=== PATIENT | female | born 1980 | race Caucasian/White ===

== ENCOUNTER 2022-10-11 09:49 | Outpatient (CLI) | payer BC, SELFPAY | END 2022-10-11 09:50 | disposition home or self-care (01) | LOC: FRMREF 10-12 16:23 | PROVIDERS: PCP Physician Assistant Medical; Visit Provider Family Medicine | DX: N39.0 Urinary tract infection, site not specified (principal) | CPT/HCPCS: 87086; 87186 ==

== ENCOUNTER 2023-03-12 12:59 | Outpatient (CLI) | payer BC, SELFPAY ==
--- NOTE | 2023-03-12 13:20 | CRLHL7_ITS ---
For Patients: As a result of the Century Cures Act, medical imaging exams and procedure reports are released immediately into your electronic medical record. You may view this report before your referring provider. If you have questions, please contact your health care provider. BILATERAL SCREENING MAMMOGRAM WITH COMPUTER-AIDED DETECTION AND TOMOSYNTHESIS TECHNIQUE: CC, MLO and Implant displaced views were obtained. These mammographic images have been obtained using full-field digital technique. These mammographic images were interpreted with the benefit of computer-aided detection. Breast Tomosynthesis was used in this interpretation. COMPARISON FILM: 01/16/22, 07/22/20. FINDINGS: There are scattered areas of fibroglandular density IMPRESSION: There is no radiographic evidence for malignancy. ASSESSMENT: BI-RADS Category 2: Benign RECOMMENDATION: Routine screening mammogram in 1 year. A lay language report of this examination will be provided to the patient. Camilo Canas M.D. Diagnostic Radiologist [email or web address] / be/Dictated by: Camilo Canas MD @ 03/13/2023 8:50:00 AM (Electronically Signed)
== END 2023-03-12 13:00 | disposition home or self-care (01) ==
LOC: MAMMO 13:00
PROVIDERS: PCP Physician Assistant Medical; Visit Provider Obstetrics & Gynecology
DX: Z12.31 Encounter for screening mammogram for malignant neoplasm of breast (principal)
CPT/HCPCS: 77063; 77067

== ENCOUNTER 2024-04-14 12:51 | Outpatient (CLI) | payer BC, SELFPAY ==
--- NOTE | 2024-04-14 13:00 | CRLHL7_ITS ---
For Patients: As a result of the Century Cures Act, medical imaging exams and procedure reports are released immediately into your electronic medical record. You may view this report before your referring provider. If you have questions, please contact your health care provider. BILATERAL SCREENING MAMMOGRAM WITH COMPUTER-AIDED DETECTION AND TOMOSYNTHESIS TECHNIQUE: CC, MLO and Implant displaced views were obtained. These mammographic images have been obtained using full-field digital technique. These mammographic images were interpreted with the benefit of computer-aided detection. Breast Tomosynthesis was used in this interpretation. COMPARISON FILM: 03/12/23, 01/16/22, 07/22/20. FINDINGS: The breasts are heterogeneously dense, which may obscure small masses. IMPRESSION: There is no radiographic evidence for malignancy. ASSESSMENT: BI-RADS Category 2: Benign RECOMMENDATION: Routine screening mammogram in 1 year. A lay language report of this examination will be provided to the patient. Camilo Canas M.D. Diagnostic Radiologist [email or web address] SP/Dictated by: Camilo Canas MD @ 04/15/2024 10:54:00 AM (Electronically Signed)
== END 2024-04-14 12:52 | disposition home or self-care (01) ==
LOC: MAMMO 12:51
PROVIDERS: PCP Physician Assistant Medical; Visit Provider Obstetrics & Gynecology
DX: Z12.31 Encounter for screening mammogram for malignant neoplasm of breast (principal)
CPT/HCPCS: 77063; 77067; 84443

== ENCOUNTER 2024-04-14 13:55 | Outpatient (CLI) | payer BC, SELFPAY | END 2024-04-14 13:56 | disposition home or self-care (01) | LOC: NFLDREF 13:55 | PROVIDERS: PCP Physician Assistant Medical; Visit Provider Obstetrics & Gynecology | DX: Z01.419 Encounter for gynecological examination (general) (routine) without abnormal findings (principal); E04.9 Nontoxic goiter, unspecified; Z12.31 Encounter for screening mammogram for malignant neoplasm of breast; R92.2 Inconclusive mammogram | CPT/HCPCS: 77063; 77067; 84443 ==

== ENCOUNTER 2024-04-28 12:48 | Outpatient (CLI) | payer BC, SELFPAY ==
--- NOTE | 2024-04-28 13:00 | CRLHL7_ITS ---
For Patients: As a result of the Century Cures Act, medical imaging exams and procedure reports are released immediately into your electronic medical record. You may view this report before your referring provider. If you have questions, please contact your health care provider. INDICATION: Thyroid enlargement, nontoxic goiter COMPARISON: none TECHNIQUE: Dias scale and color Doppler images were acquired of the thyroid gland. FINDINGS: Thyroid echotexture is diffusely heterogeneous. Multiple solid and cystic nodules are present within the left thyroid lobe measuring up to 2 cm, TR 3. Multiple solid and cystic nodules within the right thyroid lobe also present measuring up to 1.9 cm, TR 3. The right lobe measures 6.2 x 2.2 x 2.1 cm and the left lobe measures 6.5 x 2.6 x 2.7 cm in size. The color Doppler images demonstrate normal vascularity. There is no evidence of cervical lymphadenopathy or parathyroid mass. IMPRESSION: Enlarged thyroid with heterogeneous echotexture and multiple TR 3 nodules measuring 2.0 cm or less. One year follow-up recommended. Dictated by Camilo Canas MD @ 04/28/2024 2:52:35 PM (Electronically Signed)
== END 2024-04-28 12:49 | disposition home or self-care (01) ==
PROVIDERS: Visit Provider Obstetrics & Gynecology
DX: E04.9 Nontoxic goiter, unspecified (principal)
CPT/HCPCS: 76536

== ENCOUNTER 2025-01-20 09:23 | Outpatient (CLI) | payer OTHER, SELFPAY | END 2025-01-20 09:24 | disposition home or self-care (01) | LOC: NFLDREF 01-26 17:59 | PROVIDERS: Visit Provider Physician Assistant Medical | DX: R82.90 Unspecified abnormal findings in urine (principal) | CPT/HCPCS: 87086 ==

== ENCOUNTER 2025-05-25 12:39 | Outpatient (CLI) | payer OTHER, SELFPAY ==
--- NOTE | 2025-05-25 13:00 | CRLHL7_ITS ---
For Patients: As a result of the Century Cures Act, medical imaging exams and procedure reports are released immediately into your electronic medical record. You may view this report before your referring provider. If you have questions, please contact your health care provider. INDICATION: BILATERAL SCREENING MAMMOGRAM W/IMPLANTS, ASYMPTOMATIC 44 Y/O FEMALE COMPARISON: 04/14/2024, 03/12/2023, 01/16/2022 TECHNIQUE: Digital mammogram in CC and MLO projections including computer-aided detection (CAD) and tomosynthesis. BREAST COMPOSITION: There are scattered areas of fibroglandular density. FINDINGS: No suspicious findings. ASSESSMENT: BI-RADS 2 Benign RECOMMENDATION: Annual screening mammogram. A lay language report of this examination will be provided to the patient. Dictated by: Alejandrina Naqvi MD @ 05/27/2025 09:21:19 (Electronically Signed)
== END 2025-05-25 12:40 | disposition home or self-care (01) ==
LOC: MAMMO 12:39
PROVIDERS: Visit Provider Obstetrics & Gynecology
DX: Z12.31 Encounter for screening mammogram for malignant neoplasm of breast (principal); Z98.82 Breast implant status
CPT/HCPCS: 77063; 77067